=== PATIENT | male | born 2000 | race Two or more races ===

== ENCOUNTER 2021-03-22 21:14 | Emergency (ER) | payer SELFPAY ==
[~2021-03-22] VITALS: Ht 188 cm; Wt 95.0 kg
[2021-03-22 22:25] LABS: BASO % 1 % (0-3); EOS # 0.1 x10^3/uL (0.0-0.7); EOS % 1 % (0-3); HEMATOCRIT 50.4 % (39.0-53.0); HEMOGLOBIN 17.4 g/dL (13.0-17.5); LYMPH # 2.1 x10^3/uL (1.0-4.8); LYMPH % 26 % (24-48); MEAN CORPUSCULAR HEMOGLOBIN 30 pg (25-35); MEAN CORPUSCULAR HGB CONC 35 g/dL (31-37); MEAN CORPUSCULAR VOLUME 86 fL (79-100); MONO # 0.6 x10^3/uL (0.0-1.1); MONO % 7 % (0-9); NEUT # 5.3 x10^3/uL (1.8-7.7); NEUT % 65 % (31-73); PLATELET COUNT 269 x10^3/uL (140-400); RED BLOOD COUNT 5.84 x10^6/uL (4.30-5.70); RED CELL DISTRIBUTION WIDTH 12.9 % (11.5-14.5); WHITE BLOOD COUNT 8.2 x10^3/uL (4.0-11.0)
[2021-03-22] MEDS ORDERED: ONDANSETRON PF 4 MG/2 ML VIAL. IVP ONE (22:30)
[2021-03-22] MEDS ORDERED: IV NORMAL SALINE 1000ML BAG 1,000 ML IV ONE (22:30)
--- NOTE | 2021-03-22 22:32 | PHYS DOC ---
Past Medical History Past Surgical History: No Surgical History General Adult EDM: Chief Complaint: Palpitations HPI: HPI: 20-year-old male who denies any past medical history presents the ED with complaints of chest pain described as palpitations and racing heart rate stating " I feel as if my whole body is asleep," started around 2 PM today. Patient reports significant financial stressors, associated nausea and diarrhea (1 episode today). Admits to cocaine use yesterday-denies use today. Reports family history of CAD. Patient is Citizen Of [place]-speaking and the ED staff member was used for translating, environmental professional services were offered. Review of Systems: Review of Systems: Constitutional: Denies fever or chills. [] Eyes: Denies change in visual acuity. [] HENT: Denies nasal congestion or sore throat. [] Respiratory: Denies cough or shortness of breath or hemoptysis Cardiovascular: Denies syncope or edema. [] GI: Denies abdominal pain, dry heaves in ed, bloody stools Musculoskeletal: Denies back pain or joint pain. [] Integument: Denies rash or discoloration Neurologic: Denies headache, focal weakness or sensory changes. [] Endocrine: Denies polyuria or polydipsia. [] Lymphatic: Denies swollen glands. [] Psychiatric: Denies depression or suicidal ideations Heart Score: C/O Chest Pain: Yes HEART Score for Chest Pain: HEART Score for Chest Pain Response (Comments) Value History Slighlty/Non-Suspicious 0 ECG Normal 0 Age < 45 0 Risk Factors 1 or 2 Risk Factors 1 Troponin < Normal Limit 0 Total 1 Risk Factors: Risk Factors: DM, Current or recent (<one month) smoker, HTN, HLP, family history of CAD, obesity. Risk Scores: Score 0 - 3: 2.5% MACE over next 6 weeks - Discharge Home Score 4 - 6: 20.3% MACE over next 6 weeks - Admit for Clinical Observation Score 7 - 10: 72.7% MACE over next 6 weeks - Early Invasive Strategies Current Medications: Current Medications Medications (Trade) Dose Ordered Sig/Darya Start Time Stop Time Status Last Admin Dose Admin Lorazepam (Ativan Inj) 1 mg 1X ONCE 03/22/21 22:15 03/22/21 22:16 UNV Ondansetron HCl (Zofran) 4 mg 1X ONCE 03/22/21 22:15 03/22/21 22:16 UNV Sodium Chloride 1,000 ml @ 1,000 mls/hr 1X ONCE 03/22/21 22:15 03/22/21 23:14 UNV Allergies: Allergies: Allergies Coded Allergies Type Severity Reaction Last Updated Verified No Known Drug Allergies 03/22/21 No Physical Exam: PE: Constitutional: Well developed, well nourished, no acute distress, non-toxic appearance. HENT: Normocephalic, atraumatic, Eyes: EOMI, conjunctiva normal, no discharge. Neck: Normal range of motion, supple, Cardiovascular: S1/2 present, tachycardic Lungs & Thorax: Speaking in full sentences, bilateral equal chest rise, no tachypnea or increased work of breathing Abdomen: soft, no tenderness, Skin: Warm, dry, no erythema, no rash. [] Extremities: No tenderness, no cyanosis, no lower extremity edema Neurologic: Alert and oriented X 3, normal motor function, normal sensory function, no focal deficits noted. [] Psychologic: Affect normal, judgement normal, mood -very anxious Current Patient Data: Labs: Laboratory Tests Test 03/22/21 22:18 White Blood Count 8.2 x10^3/uL (4.0-11.0) Red Blood Count 5.84 x10^6/uL (4.30-5.70) H Hemoglobin 17.4 g/dL (13.0-17.5) Hematocrit 50.4 % (39.0-53.0) Mean Corpuscular Volume 86 fL (79-100) Mean Corpuscular Hemoglobin 30 pg (25-35) Mean Corpuscular Hemoglobin Concent 35 g/dL (31-37) Red Cell Distribution Width 12.9 % (11.5-14.5) Platelet Count 269 x10^3/uL (140-400) Neutrophils (%) (Auto) 65 % (31-73) Lymphocytes (%) (Auto) 26 % (24-48) Monocytes (%) (Auto) 7 % (0-9) Eosinophils (%) (Auto) 1 % (0-3) Basophils (%) (Auto) 1 % (0-3) Neutrophils # (Auto) 5.3 x10^3/uL (1.8-7.7) Lymphocytes # (Auto) 2.1 x10^3/uL (1.0-4.8) Monocytes # (Auto) 0.6 x10^3/uL (0.0-1.1) Eosinophils # (Auto) 0.1 x10^3/uL (0.0-0.7) Basophils # (Auto) 0.0 x10^3/uL (0.0-0.2) Laboratory Tests 03/22/21 22:18 Vital Signs: Vital Signs Date Time Temp Pulse Resp B/P (MAP) Pulse Ox O2 Delivery O2 Flow Rate FiO2 03/22/21 22:01 98.4 114 16 165/103 (123) 99 Room Air 98.4 EKG: EKG: Sinus tachycardia 112 bpm, no axis deviation, normal intervals, no T wave inversion, no ST elevation or ST depression Radiology/Procedures: Radiology/Procedures: []radiology read pending, i viewed myself Course & Med Decision Making: Course & Med Decision Making Pertinent Labs and Imaging studies reviewed. (See chart for details) Concern for palpitations and chest discomfort likely related to crystal meth use (on re-eval denied cocaine and stated he used crystal meth). Heart rate 94 bpm at time of discharge. EKG with no ischemia. No change in two high-sensitivity troponins. Patient with no shortness of breath. I suspect drug-induced palpitations and anxiety. I discouraged any further drug use. Patient calm on reevaluation with no further anxiety or distress. Will discharge home with strict ED return precautions were given for syncope, worsening chest pain, dyspnea or neurologic deficits. Encouraged urgent outpatient follow-up with PMD, psychiatry and RSI for her anxiety and substance abuse. Life-threatening processes were considered but are low suspicion at this time, given history, physical exam and ED workup. Pt was educated on all prescription medications and adverse effects. All patient's questions were answered and pt was stable at time of discharge. Life/limb-threatening differential includes but is not limited to, acute myocardial infarction, aortic dissection, congestive heart failure, esophageal injury including rupture, surgical abdomen, arrhythmia, cardiomyopathy, myocarditis, pericarditis, peptic ulcer disease, pneumomediastinum, pneumonia, pneumothorax, pulmonary embolus, unstable angina, rib fracture, contusion, pericardial tamponade or effusion, traumatic injury including mediastinal he morrhage or hematoma, or pulmonary contusion. I have spoken with the patient and/or caregivers. I explained the patient's condition, diagnoses and treatment plan based on the information available to me at this time. I have answered the patient and/or caregiver's questions and addressed any concerns. The patient and/or caregivers have a good understanding of patient's diagnosis, condition and treatment plan as can be expected at this point. Vital signs have been stable. Patient's condition is stable and appropriate for discharge from the emergency department. Patient will pursue further outpatient evaluation with primary care physician or other designated or consulting physician as outlined in the discharge instructions. The patient and/or caregivers are agreeable to this plan of care and follow-up instructions have been explained in detail. The patient and/or caregivers have received these instructions in written form and have expressed an understanding of the discharge instructions. The patient and/or caregivers are aware that any significant change of condition or worsening of symptoms should prompt immediate return to this or the closest emergency department or call to 911. Eloy Disclaimer: Dragjuan Disclaimer: This electronic medical record was generated, in whole or in part, using a voice recognition dictation system. Departure Departure Impression: Primary Impression: Palpitations Additional Impressions: Methamphetamine use Anxiety Disposition: 01 HOME / SELF CARE / HOMELESS Condition: STABLE Referrals: NO PCP (PCP) Follow-up with your primary care physician in 24 to 48 hours OR FOLLOW UP WITH FAMILY MEDICINE: [address] [facility] [place] [address] Patient Instructions: Anxiety and Panic Attacks, Methamphetamine Abuse, Complications, Palpitations Additional Instructions: [employer] [employer] [facility] Y PARA EL MANEJO DEL ABUSO DE SUSTANCIAS: evite el uso de drogas ilcitas [address] [place] [address] Lnea de crisis las 24 horas: [phone] SEGUIMIENTO CON PSIQUIATRA: PARA EL TRATAMIENTO DEFINITIVO de la ansiedad Dr. Yogi [facility] [address] [place], [place] [address] Telfono: INSTRUCCIONES GENERALES DE [place] DEL DEPARTAMENTO DE EMERGENCIAS Vanda por venir al Departamento de Emergencias (ED) del [facility] hoy y confiando en nosotros con bender cuidado. Confiamos que haya tenido amira experiencia positiva en nuestra Emergencia Departamento. Si desea hablar con la gerencia del departamento, puede llamar al Director al . TEENA INSTRUCCIONES DE SEGUIMIENTO SON LAS SIGUIENTES: 1. Tiene un mdico privado? Si no tiene un mdico privado, solicite un lista de recursos de mdicos o clnicas que pueden ayudarlo con la atencin de seguimiento. 2. El Physicain de Emergencias bennett interpretado teena radiografas. El especialista en susie X tambin revselos. Si hay un cambio en los resultados, se le notificar en 48 horas cuando en todo posible. 3. Se bennett realizado amira prueba de laboratorio o cultivo, se revisarn teena resultados y se le notificado si necesita un cambio de tratamiento. INSTRUCCIONES E INFORMACIN ADICIONALES: 1. Bender atencin hoy bennett sido supervisada por un mdico especialmente capacitado en emergencias. cuidado. Muchos problemas requieren ms de amira evaluacin para un diagnstico completo y tratamiento. Le recomendamos que programe bender imelda de seguimiento segn lo recomendado para Asegurar el tratamiento completo de bender enfermedad o lesin. Si no puede obtener un seguimiento cuidado y contina teniendo un problema, o si bender condicin empeora, le recomendamos que Regrese al servicio de urgencias. 2. No podemos determinar con seguridad bender condicin por telfono ni podemos elodia consejos mdicos slidos por telfono. Por estas razones de seguridad, si llama al mdico consejo, le pediremos que acuda al servicio de urgencias para amira evaluacin adicional. 3. Si tiene alguna pregunta con respecto a estas instrucciones de mackenzie, llame al servicio de urgencias al [phone]. INFORMACIN DE SEGURIDAD: En inters de la seguridad, el bienestar y la prevencin de lesiones; te animamos a que uses tu cinturn de seguridad, si fuma; bastante fumador, y alentamos a la alanis a usar un jasson protector para andar en bicicleta y otros eventos deportivos que presentan un mayor riesgo de lesin en la lenard. SI TEENA SNTOMAS EMPEORAN O SE DESARROLLAN NUEVOS SNTOMAS, O TIENE PREOCUPACIONES ACERCA DE BENDER CONDICIN; O SI BENDER CONDICION EMPLEA MIENTRAS ESPERA BENDER IMELDA DE SEGUIMIENTO; CUALQUIERA PNGASE EN CONTACTO CON BENDER MDICO DE CUIDADO PRIMARIO, EL MDICO CUYO NOMBRE Y NMERO LE DIERON, O REGRESE INMEDIATAMENTE AL EDIFICIO. KADIE SHINE DO Mar 22, 2021 22:32
[2021-03-22 22:34] LABS: CALCIUM 9.4 mg/dL (8.5-10.1); CREATININE 1.1 mg/dL (0.7-1.3); GFR 85.3; POTASSIUM 3.1 mmol/L (3.5-5.1)
[2021-03-22 22:40] LABS: ALBUMIN 4.3 g/dL (3.4-5.0); ALBUMIN/GLOBULIN RATIO 1.4 (1.0-1.7); MAGNESIUM 2.2 mg/dL (1.8-2.4); TOTAL BILIRUBIN 0.6 mg/dL (0.2-1.0); TOTAL PROTEIN 7.4 g/dL (6.4-8.2)
[2021-03-22 23:24] LABS: BARBITURATES NEG (NEG); BENZODIAZEPINES NEG (NEG); CANNABINOIDS NEG (NEG); COCAINE NEG (NEG); METHADONE NEG (NEG); OPIATES NEG (NEG); PHENCYCLIDINE NEG (NEG)
[2021-03-22 23:25] LABS: AMPHETAMINE/METHAMPHETAMINE POS (NEG)
--- NOTE | 2021-03-23 01:04 | EKG ---
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
[2021-03-23 02:33] VITALS: BP 157/88
--- NOTE | 2021-03-23 08:17 | RAD ---
XR CHEST 1V CLINICAL INDICATIONS: Chest pain COMPARISON: None available. Findings: There is a nodular lung density within the left apex. It measures 14 mm. Right lung field i s clear. No pleural effusion or pneumothorax is seen. The heart size, pulmonary vasculature, mediasti num and both kurt are unremarkable. IMPRESSION: 14 mm left apical lung nodule. It is possible that this could be related to something ove rlying the patient. Recommend repeat PA view chest x-ray without any overlying garments. If this find ing persists, then chest CT may be needed. Electronically signed by: Jaime Barajas MD (03/23/2021 8:14 AM) [id number]
== END 2021-03-23 03:00 | disposition home or self-care (01) ==
LOC: ER 21:14
DX: R00.2 Palpitations (principal); F15.90 Other stimulant use, unspecified, uncomplicated; F41.9 Anxiety disorder, unspecified
CPT/HCPCS: 36415; 71045; 80053; 80307; 83735; 84484; 85025; 93005; 96361; 96374; 96375; 99285; J2060; J2405; J7030